=== PATIENT | male | born 1990 | race Caucasian/White ===

== ENCOUNTER 2021-06-18 04:08 | Emergency (ER) | payer MEDICAID ==
[~2021-06-18] VITALS: Ht 180.3 cm; Wt 73.9 kg
[2021-06-18 04:11] VITALS: BP 175/115
--- NOTE | 2021-06-18 04:17 | NUR ---
AMBULATORY TO BED
[2021-06-18] MEDS ORDERED: ONDANSETRON 4 MG/2 ML VIAL ONE (04:19)
[2021-06-18] MEDS ORDERED: ONDANSETRON 4 MG/2 ML VIAL IVP ONE (04:20)
[2021-06-18] MEDS ORDERED: NACL 0.9% 3,000 ML IV ONE (04:20)
--- NOTE | 2021-06-18 04:20 | NUR ---
SEEN AND EXAMINED BY NITZA WITH ORDERS AND CARRIED OUT
[2021-06-18] MEDS ORDERED: KETOROLAC 30 MG/ML VIAL IVP ONE (04:30)
--- NOTE | 2021-06-18 04:30 | NUR ---
MEDICATED PER ERMDS ORDER, TOLERATED WELL.
[2021-06-18] MEDS ORDERED: HALOPERIDOL IM 5 MG/ML VIAL IM ONE (04:45)
[2021-06-18 05:17] LABS: BASOPHILS % (AUTO) 0.5 % (0.0-2.0); EOSINOPHILS # (AUTO) 0.1 K/uL (0-0.4); HEMATOCRIT 44.2 % (36-52); LYMPHOCYTES # (AUTO) 1.7 K/uL (2.0-11.5); LYMPHOCYTES % (AUTO) 15.8 % (20.5-51.1); MEAN CORPUSCULAR HEMOGLOBIN 31 pg (27-31); MEAN CORPUSCULAR HGB CONC 34 g/dL (33-37); MEAN CORPUSCULAR VOLUME 91.4 fL (80-94); MONOCYTES # (AUTO) 0.6 K/uL (0.8-1.0); MONOCYTES % (AUTO) 6.1 % (1.7-9.3); NEUTROPHILS # (AUTO) 8.1 K/uL (1.8-7.7); NEUTROPHILS % (AUTO) 76.6 % (42.2-75.2); PLATELET COUNT (AUTO) 307 K/uL (140-450); RED BLOOD CELL COUNT(AUTO) 4.83 MIL/uL (4.20-6.10); RED CELL DISTRIBUTION WIDTH 13.6 % (11.6-13.7); WHITE BLOOD COUNT (AUTO) 10.6 K/uL (4.8-10.8)
--- NOTE | 2021-06-18 05:30 | NUR ---
Patient appears to be resting comfortably in bed. Vital Signs within normal limits. Respirations even and unlabored.
[2021-06-18 06:00] LABS: ACETONE, SERUM NEGATIVE (NEGATIVE)
[2021-06-18 06:05] LABS: ALBUMIN 4.6 g/dL (3.4-5.0); ASPARTATE AMINOTRANSFERASE 41 U/L (15-37); CARBON DIOXIDE 29.4 mmol/L (21-32); CHLORIDE 100 mmol/L (98-107); GFR ARICAN-AMERICAN 51 mL/min (>90); GLUCOSE 375 mg/dL (74-106); MAGNESIUM 2.1 mg/dL (1.8-2.4); PHOSPHORUS 2.6 mg/dL (2.5-4.9); POTASSIUM 4.4 mmol/L (3.5-5.1); SODIUM SERUM 137 mmol/L (136-145); TOTAL BILIRUBIN 0.7 mg/dL (0.0-1.0); UREA NITROGEN, BLOOD 23 mg/dL (7-18)
[2021-06-18] MEDS ORDERED: INSULIN NPH HUM/REG INSULIN HM 100 UNIT/ML 10 ML VIAL SUBQ ONE (06:25)
--- NOTE | 2021-06-18 07:15 | NUR ---
REPOTY GIVEN TO ALMITA ROY, FOR CONTINUITY OF CARE
--- NOTE | 2021-06-18 07:16 | NUR ---
REPORT AND CONTINUATION OF CARE RECEIVED FROM MANUELA ZAMUDIO.
--- NOTE | 2021-06-18 07:20 | NUR ---
PATIENT OBSERVED IN BED RESTING, FLUIDS RUNNING, VSS, RR EVEN AND UNLABORED.
[2021-06-18] MEDS ORDERED: METO-486 PO (07:59)
--- NOTE | 2021-06-18 08:30 | NUR ---
ACCUCHECK 190, TAKEN AT THIS TIME. DR CABRERA MADE AWARE.
[2021-06-18 08:50] VITALS: BP 114/48
--- NOTE | 2021-06-18 08:50 | NUR ---
Patient discharged with v/s stable. Written and verbal after care instructions given and explained. Patient alert, oriented and verbalized understanding of instructions. Ambulatory with steady gait. All questions addressed prior to discharge. ID band removed. Patient advised to follow up with PMD. Rx of REGLAN given. Patient educated on indication of medication including possible reaction and side effects. Opportunity to ask questions provided and answered.
[2021-06-18 09:07] LABS: BILIRUBIN,URINE NEGATIVE (NEGATIVE); BLOOD, URINE 2+ (NEGATIVE); COLOR,URINE YELLOW (YELLOW); LEUKOCYTE ESTERASE ,URINE NEGATIVE (NEGATIVE); NITRITE, URINE NEGATIVE (NEGATIVE); UGLUCOSE 3+ (NEGATIVE)
[2021-06-18 09:22] LABS: APPEARANCE,URINE CLOUDY (CLEAR)
[2021-06-18 09:28] LABS: URINE AMORPHOUS URATE None Seen /HPF (None Seen); WBC,URINE 0-5 /HPF (0-5)
== END 2021-06-18 08:50 | disposition home or self-care (01) ==
LOC: MED 04:08
DX: E10.65 Type 1 diabetes mellitus with hyperglycemia (principal); R11.2 Nausea with vomiting, unspecified
CPT/HCPCS: 36415; 80053; 81001; 82009; 82948; 83036; 83735; 84100; 85025; 96361; 96372; 96374; 96375; 99285; J1630; J1815; J1885; J2405; J7030